=== PATIENT | female | born 1980 | race Caucasian/White ===

== ENCOUNTER 2017-04-07 16:52 | Inpatient (IN) | payer OTHER ==
[~2017-04-07] VITALS: Ht 162.6 cm; Wt 108.9 kg
--- NOTE | 2017-04-07 17:30 | NUR ---
Intake assessment; Patient is a 36 year old female, presented to [facility] to detoxify from Benzodiazepines (Klonopin/Ativan) and [place]. Patient came from [place] and arrived at intake office at approximately 1700 accompanied by her . Patient appears anxious, nervous and withdrawn. She is the primary source of information. Patient is admitted under the care of Dr. Harding. Patient reported to be allergic to Cipro, Levaquin and Toradol. Patient denies any history of seizures. Admitting vital signs are as Follows; BP 120/79, HR 92, Temperature 97.9, respirations 18, SPO2 95%, weight 240 and height of 5'4. Educated patient regarding unit protocols and policies. Patient to be evaluated by MD in intake office. Will continue with nursing assessment when patient is up on the unit.
[2017-04-07 17:49] VITALS: BP 120/79
[2017-04-07] MEDS ORDERED: diphenhydrAMINE 50 MG CAPSULE PO PRN (18:00)
[2017-04-07] MEDS ORDERED: HYDROXYZINE PAMOATE 25 MG CAPSULE PO PRN (18:00)
[2017-04-07] MEDS ORDERED: LORAZEPAM 2 MG/1 ML VIAL IM PRN (18:00)
[2017-04-07] MEDS ORDERED: DICYCLOMINE HCL 20 MG TABLET PO PRN (18:00)
[2017-04-07] MEDS ORDERED: MAGNESIUM HYDROXIDE 30 ML LIQUID UDC PO PRN (18:00)
[2017-04-07] MEDS ORDERED: IBUPROFEN 600 MG TABLET PO PRN (18:00)
[2017-04-07] MEDS ORDERED: ONDANSETRON 4 MG/2 ML VIAL IM PRN (18:00)
[2017-04-07] MEDS ORDERED: LOPERAMIDE HCL 2 MG CAPSULE PO PRN ×2 (18:00)
[2017-04-07] MEDS ORDERED: THIAMINE HCL 200 MG/2 ML VIAL IM ONE (18:00)
[2017-04-07] MEDS ORDERED: BUPRENORPHINE HCL 2 MG TAB.SUBL SL PRN (18:00)
[2017-04-07] MEDS ORDERED: LORAZEPAM 1 MG TABLET PO PRN ×2 (18:00)
[2017-04-07] MEDS ORDERED: MAG HYDROX/AL HYDROX/SIMETH 30 ML LIQUID UDC PO PRN (18:00)
[2017-04-07] MEDS ORDERED: MIRALAX 17 GM POWD.PACK PO PRN (18:00)
[2017-04-07] MEDS ORDERED: ONDANSETRON ODT 4 MG TAB.RAPDIS SL PRN (18:00)
[2017-04-07] MEDS ORDERED: HYDR50CA PO (18:51)
[2017-04-07] MEDS ORDERED: GABA600T2 PO (18:51)
[2017-04-07] MEDS ORDERED: QUET200T PO (18:51)
[2017-04-07 18:52] LABS: *AMPHETAMINE, URINE NEGATIVE (NEGATIVE); *BARBITURATE, URINE NEGATIVE (NEGATIVE); *CANNABINOID, URINE NEGATIVE (NEGATIVE); *COCCAINE, URINE NEGATIVE (NEGATIVE); *OPIATE, URINE NEGATIVE (NEGATIVE); *PHENCYCLIDINE SCREEN,URINE NEGATIVE (NEGATIVE)
--- NOTE | 2017-04-07 19:09 | NUR ---
End of shift note; Patient is AOX4. Patient refused to receive Vitamin B1 shot. Educated patient regarding the importance of compliance to treatment, verbalized understanding. Detailed report given to oncoming night nurse.
[2017-04-07 20:00] VITALS: BP 142/90
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
[2017-04-07 20:23] LABS: BASOPHILS # (AUTO) 0.1 K/uL (0.0-8.0); BASOPHILS % (AUTO) 0.5 % (0.0-2.0); EOSINOPHILS # (AUTO) 0.2 K/uL (0.0-0.7); EOSINOPHILS % (AUTO) 2.1 % (0.0-7.0); HEMATOCRIT 39.3 % (37-47); HEMOGLOBIN 12.7 G/DL (12.0-16.0); LYMPHOCYTES # (AUTO) 3.1 K/UL (0.8-4.8); LYMPHOCYTES % (AUTO) 28.4 % (20.5-51.5); MEAN CORPUSCULAR HEMOGLOBIN 28.5 UUG (27.0-31.0); MEAN CORPUSCULAR HGB CONC 32 g/dL (32.0-37.0); MEAN CORPUSCULAR VOLUME 88.1 FL (81.0-99.0); MONOCYTES # (AUTO) 0.6 K/UL (0.1-1.30); MONOCYTES % (AUTO) 5.1 % (0.0-11.0); NEUTROPHILS # (AUTO) 6.8 K/UL (1.8-8.9); NEUTROPHILS % (AUTO) 63.9 % (38.5-71.5); PLATELET COUNT (AUTO) 348 K/UL (150-450); RED BLOOD CELL COUNT(AUTO) 4.46 MIL/UL (4.2-5.4); WHITE BLOOD COUNT (AUTO) 10.8 K/UL (4.0-11.2)
[2017-04-07 20:24] LABS: ALANINE AMINOTRANSFERASE 38 U/L (14-59); ALKALINE PHOSPHATASE 80 U/L (50-136); AMYLASE 39 U/L (25-115); ASPARTATE AMINOTRANSFERASE 20 U/L (15-37); BILIRUBIN,TOTAL 0.1 mg/dL (0.2-1.0); CARBON DIOXIDE 29 mmol/L (21-32); CHLORIDE 103 mmol/L (98-107); CREATININE 0.9 mg/dL (0.6-1.3); GLUCOSE 91 mg/dL (74-106); LIPASE 159 U/L (73-393); MAGNESIUM 1.8 mg/dL (1.8-2.4); TOTAL PROTEIN, SERUM 7.5 g/dL (6.4-8.2); UREA NITROGEN, BLOOD 9 mg/dL (7-18)
[2017-04-07 20:28] LABS: ETHANOL < 3 MG/DL (0-0)
[2017-04-07 20:43] LABS: THYROID STIMULATING HORMONE 3.259 mIU/mL (0.358-3.740)
[2017-04-07 20:56] LABS: CHOLESTEROL 169 mg/dL (<200); HDL CHOLESTEROL 54 mg/dL (40-60); TRIGLYCERIDES 107 MG/DL (30-150)
[2017-04-07 21:00] LABS: *URINE HCG, QUAL NEGATIVE (NEGATIVE)
[2017-04-07] MEDS ORDERED: BUPRENORPHINE HCL 2 MG TAB.SUBL SL SCH (21:00)
[2017-04-07] MEDS ORDERED: LORAZEPAM 1 MG TABLET PO SCH (21:00)
[2017-04-07] MEDS: PRAZOSIN HCL 1 MG CAPSULE PO SCH (21:23)
[2017-04-07] MEDS: GABAPENTIN 300 MG CAPSULE PO SCH (21:23)
[2017-04-07] MEDS ORDERED: QUETIAPINE FUMARATE 200 MG TABLET PO ONE (23:00)
--- NOTE | 2017-04-07 23:03 | NUR ---
PRN Administration Obtained one time order of Seroquel 200mg x1 and administered for sleep as ordered. Safety measures in place. Will continue to monitor.
[2017-04-07] MEDS ORDERED: QUETIAPINE FUMARATE 200 MG TABLET ONE (23:07)
[2017-04-08] VITALS: BP 135/83
--- NOTE | 2017-04-08 | NUR ---
Vital Signs BP 135/83, pulse 77, respirations 16, SpO2 98%, temp 98.2, no pain 0/10. COWS/CIWA deferred d/t pt sleeping - to assess while pt is awake as ordered Pt is sleeping, Seroquel effective, no s/s of acute distress noted. Safety measures in place. Will continue to monitor.
[2017-04-08] MEDS ORDERED: VENL75CA62 PO (01:00)
[2017-04-08] MEDS ORDERED: LORA1TAB PO (01:00)
[2017-04-08] MEDS ORDERED: PRAZ2CAP2 PO (01:00)
[2017-04-08] MEDS ORDERED: GUAI-789 PO (01:00)
[2017-04-08] MEDS ORDERED: GABA-534 PO (01:00)
[2017-04-08] MEDS ORDERED: THIA100T70 PO (01:00)
[2017-04-08 04:00] VITALS: BP 102/55
--- NOTE | 2017-04-08 04:00 | NUR ---
Vital Signs BP 102/55, pulse 77, respirations 18, SpO2 96%, temp 97.9, no pain 0/10. COWS/CIWA deferred d/t pt sleeping - to assess while pt is awake as ordered Safety measures in place. Will continue to monitor.
--- NOTE | 2017-04-08 07:00 | NUR ---
End of Shift Pt is a 36 year old female admitted for Benzo/Opiate dependence. PMH: PTSD, Bipolar, Stroke, chlamydia, tonsillectomy, ORIF of right humerus and suicidal attempt 60 days ago. Pt is allergic to ciprofloxacin, Ketoralac, levofloxacin, regular diet, fall/seizure precautions and full code. During shift, pt presented with depressed mood, withdrawn, skin clammy/flushed, reported chills, body aches, hot cold flushes - scheduled medications administered, CIWA 4 and COWS 7. Seroquel 200mg x1 administered for sleep, effective. Pt slept for 4 hours, intake of 495 ml Po and voids x1. Safety measures in place, call light within reach, side rails up x2, bed locked and in low position. Endorsed to day shift nurse.
--- NOTE | 2017-04-08 07:30 | NUR ---
START OF SHIFT NOTE: Received report from night auditor nurse. Pt is a 36 year old female admitted on 04/07/2017 for Opiate/Benzo dependence. Pt placed on a 5 day Ativan and 5 day Subutex tapers. Tolerating well. Pt c/o severe muscle "cramping" and "bad withdrawal." Clonidine 0.1mg po prn and Robaxin 750 mg po prn given. Pt is alert and oriented X4. Color pink, skin warm and dry. Respirations rapid and slightly labored. Safety precautions observed. Call light within reach. Will continue to monitor.
[2017-04-08] MEDS: METHOCARBAMOL 750 MG TABLET PO PRN (07:43)
[2017-04-08] MEDS: CLONIDINE HCL 0.1 MG TABLET PO PRN (07:44)
[2017-04-08 08:00] VITALS: BP 138/82
[2017-04-08] MEDS: GABAPENTIN 300 MG CAPSULE PO SCH ×3 (08:05→20:53)
[2017-04-08] MEDS: FOLIC ACID 1 MG TABLET PO SCH (08:05)
[2017-04-08] MEDS: THIAMINE HCL 100 MG TABLET PO SCH (08:05)
[2017-04-08] MEDS: MULTIVITAMINS,THERAPEUTIC TABLET PO SCH (08:05)
[2017-04-08] MEDS: BUPRENORPHINE HCL 2 MG TAB.SUBL SL SCH ×3 (08:05→20:53)
[2017-04-08] MEDS: LORAZEPAM 1 MG TABLET PO SCH ×3 (08:06→20:53)
--- NOTE | 2017-04-08 08:15 | NUR ---
VSS CIWA 11 COWS 10 c/o severe muscle aches and anxiety. Tapers administered.
[2017-04-08] MEDS ORDERED: TUBERCULIN,PURIF.PROT.DERIV. 5 TU/0.1 ML TEST ID ONE (09:00)
--- NOTE | 2017-04-08 09:30 | NUR ---
Pt states feels much improved after taper meds. TB test administered RFA
--- NOTE | 2017-04-08 11:10 | NUR ---
ASSUMED CARE Pt's endorsement received from primary nurse. All pertinent information discussed. Will cont to monitor closely. Safety measurers in place.
--- NOTE | 2017-04-08 11:11 | NUR ---
Report given to DELONTE Bashir who will be assuming care of patient
[2017-04-08 12:00] VITALS: BP 109/67
[2017-04-08 16:00] VITALS: BP 123/78
--- NOTE | 2017-04-08 19:15 | NUR ---
END OF SHIFT NOTE Gave report to night nurse, 36 year old female admitted for Benzo/Opiate dependence. PMH: PTSD, Bipolar, Stroke, chlamydia, tonsillectomy, ORIF of right humerus and suicidal attempt 60 days ago. Pt is allergic to ciprofloxacin, Ketoralac, levofloxacin, regular diet, fall/seizure precautions and full code. During shift, pt presented with depressed mood, withdrawn, skin clammy/flushed, reported chills, body aches, hot cold flushes - scheduled medications administered. Assumed care for pt at 1110. Pt did not receive any PRN medications. Pt remained compliant with plan of care. Encouraged pt to attend groups to learn new coping skills. Last COWS-6, CIWA-5. Safety measures in place, call light within reach. pass report to night nurse.
--- NOTE | 2017-04-08 19:15 | NUR ---
Start of Shift Note: Patient is a 36 y/o female admitted on 04/07/17 for Opiate and Benzo dependence. Patient has medical history of PTSD, Bipolar disorder, Tonsillectomy, Stroke & history of Suicidal ideation 60 days ago. No seizure history noted. Patient is on a regular diet with allergies to Cipro, Toradol & Levaquin. Fall and Seizure precaution. Patient is on a 5-day Ativan and 5-day Subutex taper and tolerating well. Patient is alert & oriented to name, place & situation. Patient lying in bed and appears anxious. No shortness of breath noted. Respiration even & unlabored. Abdomen soft & non-distended. No nausea/vomiting noted. Patient complains of sweating, chills, 7/10 body aches and 7/10 headache. Bilateral hand tremors felt but not seen. No hallucinations noted. Patient denies SI/HI. Safety precautions are in place. Bed locked in lowest position. Both side rails up. Call light within pt's reach. Will continue to monitor patient.
[2017-04-08 20:00] VITALS: BP 146/84
[2017-04-08] MEDS: PRAZOSIN HCL 1 MG CAPSULE PO SCH (20:53)
[2017-04-08] MEDS: ACETAMINOPHEN 325 MG TABLET PO PRN (20:53)
[2017-04-08] MEDS: QUETIAPINE FUMARATE 200 MG TABLET PO SCH (20:53)
[2017-04-08 21:29] LABS: *BILIRUBIN,URIN NEGATIVE (NEGATIVE); *BLOOD, URINE NEGATIVE (NEGATIVE); *COLOR,URINE YELLOW (YELLOW); *KETONES,URINE NEGATIVE (NEGATIVE); *PROTEIN,URINE NEGATIVE (NEGATIVE); *UROBILINOGEN,URINE 0.2 E.U./dl (NORMAL); LEUKOCYTE ESTERASE ,URINE NEGATIVE (NEGATIVE); NITRITE, URINE NEGATIVE (NEGATIVE); PH,URINE 5.5 (5.0-8.0); UGLUCOSE NEGATIVE (NEGATIVE)
[2017-04-08 21:48] LABS: *CLARITY,URINE HAZY (CLEAR)
[2017-04-08 21:52] LABS: BACTERIA,URINE FEW /HPF (NONE SEEN); RBC,URINE 0-3 /HPF (0-3); SQUAMOUS EPITHELIAL CELL,UR MANY /HPF (NONE SEEN); WBC,URINE 0-3 /HPF (0-3)
[2017-04-08 21:53] LABS: MUCUS,URINE MODERATE /LPF (0-FEW)
[2017-04-09] VITALS: BP 124/75
--- NOTE | 2017-04-09 00:36 | NUR ---
RN note Stat ABG and Chest X-Ray Pt noted by Primary Nurse to have SOB and Oxygen Desaturation. SPO2 on RA=50-60%. RR=26. Primary Nurse called Dr. Harding. ordered Non-rebreather Mask at 15 LPM and ordered ABG Stat and Chest X-Ray Stat. Carried out orders.
[2017-04-09 01:22] LABS: ABG BASE EXCESS -3.5 mmol/L; ABG HCO3 20.6 mmol/L; ABG PCO2 34.2 mmHg (35.0-45.0); ABG PH 7.398 (7.350-7.450); ABG PO2 128.2 mmHg (75.0-100.0); ABG SITE LEFT RADIAL; ABG TOTAL HEMOGLOBIN 12.7 G/dL (12.0-16.0); COHb 6.5 % (0.5-1.5); MetHb 0.3 % (0.0-1.5); O2Hb 91.9 % (94.0-97.0)
[2017-04-09 04:00] VITALS: BP 134/67
[2017-04-09] MEDS: ACETAMINOPHEN 325 MG TABLET PO PRN ×4 (05:13→21:33)
--- NOTE | 2017-04-09 05:13 | NUR ---
PRN Tylenol Patient noted with a temperature of 100.1 F. PRN Tylenol administered as ordered. Will continue to monitor.
--- NOTE | 2017-04-09 05:30 | NUR ---
RN NOTE Pt insisted on smoking at patio. Explained risk of smoking but still refused. Informed pt of her oxygen saturation and risk of shortness of breath. Staff members redirected her and explained risks but still demanded that she go to smoke. Pt begins to get agitated and insisted that if she don't let her smoke she is gonna AMA.
--- NOTE | 2017-04-09 07:13 | NUR ---
End of Shift Note: Patient is a 36 y/o female admitted on 04/07/17 for Opiate and Benzo dependence. Patient has medical history of PTSD, Bipolar disorder, Tonsillectomy, Stroke & history of Suicidal ideation 60 days ago. No seizure history noted. Patient is on a regular diet with allergies to Cipro, Toradol & Levaquin. Fall and Seizure precaution. Patient is on a 5-day Ativan and 5-day Subutex taper and tolerating well. Patient had an episode of desaturation as low as 50-60% on RA. Patient was placed on oxygen via a non-rebreather mask as ordered by MD to maintain O2Sat >92%. ABG and CXR was done as ordered. Patient was able to maintain O2Sat while on Oxygen. Pt had an episode of fever. PRN Tylenol was given and was effective. Pt is non-cooperative to treatment. Pt slept for a total of 6 hours. Pt consumed 890ml of fluids. Voided 2x with no bowel movement. All needs attended & met. Safety precautions are in place. Bed locked in lowest position. Both side rails up. Call light within pt's reach. Will endorse pt to day shift nurse.
--- NOTE | 2017-04-09 07:15 | NUR ---
Start of Shift Note: Report received from shift supervisor rn nurse. Patient is a 36 y/o female admitted on 04/07/17 for Opiate and Benzo dependence. Pt is full code regular diet on fall and seizure precautions, reports allergies to Cipro, Ketorolac,and levofloxacin. Pt continues her 5 day Ativan and 5 day Subutex taper tolerating well. Reports PMH of PTSD, Bipolar disorder, Tonsillectomy, Stroke & history of Suicidal ideation 60 days ago and sleep apnea. Denies any suicidal and homicidal ideations. Denies seizure history. Patient is alert & oriented to name, place & situation. Pt is on a oxygen mask at 7L/min due to having low saturation levels at night (50%-60%) on RA. Pt's current SPO2 is at 97%. Pt is laying in bed with eyes closed with even unlabored breathing at 18. Pt had ABG's and Chest X-ray completed last night due to low saturation levels, MD aware of results. Pt also had a fever last night and received PRN Tylenol pts current temp is 98.1F. Pts last COWS 8 and CIWA 8 taken at 0700, pt slept a total of 6 hours last night. Pt is safe, all safety measures in place , call light within reach will continue to monitor and provide supports.
[2017-04-09 08:00] VITALS: BP 120/67
[2017-04-09 08:06] LABS: HEPATITIS B SURFACE AG Negative (Negative)
[2017-04-09] MEDS: GABAPENTIN 300 MG CAPSULE PO SCH ×3 (08:58→21:33)
[2017-04-09] MEDS: THIAMINE HCL 100 MG TABLET PO SCH (08:58)
[2017-04-09] MEDS: VENLAFAXINE XR 75 MG CAP.SR.24H PO SCH (08:58)
[2017-04-09] MEDS: LORAZEPAM 1 MG TABLET PO SCH ×4 (08:58→21:33)
[2017-04-09] MEDS: MULTIVITAMINS,THERAPEUTIC TABLET PO SCH (08:59)
[2017-04-09] MEDS: QUETIAPINE FUMARATE 25 MG TABLET PO SCH ×2 (08:59→09:00)
[2017-04-09] MEDS: FOLIC ACID 1 MG TABLET PO SCH (08:59)
[2017-04-09] MEDS ORDERED: BUPRENORPHINE HCL 2 MG TAB.SUBL SL SCH (09:00)
--- NOTE | 2017-04-09 09:15 | NUR ---
PRN MEDICATION Pt c/o generalized pain rating it 6/10 requested something for relief, non-pharmacological techniques interventions provided x3 and were not effective. PRN Tylenol 650mg administered PO, educated pt about s/e of medication and when to contact nurse. all needs met, all safety measures in place, will continue to monitor.
--- NOTE | 2017-04-09 10:15 | NUR ---
PRN REASSESSMENT Upon reassessment medication noted to be effective pt reported a decrease in pain to 2/10. Instructed pt to contact nurse if pain reoccurred. All needs met, all safety measures in place will continue to monitor.
[2017-04-09] MEDS ORDERED: QUETIAPINE FUMARATE 25 MG TABLET PO ONE (10:45)
[2017-04-09] MEDS ORDERED: NICOTINE POLACRILEX 4 MG GUM-PK OF TEN BC PRN (10:45)
[2017-04-09] MEDS: NICOTINE 14 MG/24HR PATCH TD SCH (10:59)
[2017-04-09 12:00] VITALS: BP 115/70
--- NOTE | 2017-04-09 13:55 | NUR ---
Medication held Pt's 1300 Ativan 1mg held due to pt being too sedated. MD contacted and notified no orders obtained. All safety measures in place will continue to monitor.
[2017-04-09] MEDS: BUPRENORPHINE HCL 2 MG TAB.SUBL SL SCH ×2 (15:12→21:32)
--- NOTE | 2017-04-09 15:19 | NUR ---
PRN MEDICATION Pt c/o headache rating it 5/10 requested something for relief, non-pharmacological techniques interventions provided x3 and were not effective. PRN Tylenol 650mg administered PO, educated pt about s/e of medication and when to contact nurse. all needs met, all safety measures in place, will continue to monitor.
[2017-04-09 16:00] VITALS: BP 137/70
--- NOTE | 2017-04-09 16:19 | NUR ---
PRN REASSESSMENT Upon reassessment medication noted to be effective pt reported a decrease in pain to 1/10. Instructed pt to contact nurse if pain reoccurred. All needs met, all safety measures in place will continue to monitor.
--- NOTE | 2017-04-09 19:15 | NUR ---
Start of Shift Note: Patient is a 36 y/o female admitted on 04/07/17 for Opiate and Benzo dependence. Patient has medical history of PTSD, Bipolar disorder, Tonsillectomy, Stroke & history of Suicidal ideation 60 days ago. No seizure history noted. Patient is on a regular diet with allergies to Cipro, Toradol & Levaquin. Fall and Seizure precaution. Patient is on a 5-day Ativan and 5-day Subutex taper and tolerating well. Patient is alert & oriented to name, place & situation. Patient is ambulatory with a steady gait. Last COWS 5 cIWA 4. Pt was given PRN Tylenol x2 and was given a one time order of Seroquel during day shift. Pt was placed on smoking restriction per MD orders. Pt to be placed on oxygen mask at 7L/min while sleeping d/t sleep apnea. Patient awake at this time and ambulating in the hallway. O2Sat @ 98% on RA at this time. Safety precautions are in place. Will continue to monitor patient. Addendum: 04/10/17 at 0038 by DONAVON VARELA RN ERROR on oxygen mask. Pt with new orders to be placed on CPAP when sleeping d/t sleep apnea.
--- NOTE | 2017-04-09 19:20 | NUR ---
End Of Shift Report given to tube machine operator helper nurse. Patient is a 36 y/o female admitted on 04/07/17 for Opiate and Benzo dependence. Pt is full code regular diet on fall and seizure precautions, reports allergies to Cipro, Ketorolac,and levofloxacin. Pt continues her 5 day Ativan and 5 day Subutex taper tolerating well. Reports PMH of PTSD, Bipolar disorder, Tonsillectomy, Stroke & history of Suicidal ideation 60 days ago and sleep apnea. Denies seizure history. Patient is alert & oriented to name, place & situation. Pt is on a oxygen mask at 7L/min when she sleeps due to sleep apnea. Pts vitals are WNL, pt is in stable condition, Pt received PRN Tylenol 650mg X2, Pts Ativan 1mg at 1300 due to being too sedated MD aware. Pt received one time Seroquel 50mg Pts last CIWA 5 COWS 4 at 1600. Detox medication effective at reducing withdrawal symptoms. Patient encouraged to attend group therapies/sessions to learn new coping skills to recent relapse, patient denies SI/HI. Pt ate all of her meals his total fluid intake was 2055mlwith 3 void and 0 bowel movement. Safety measures in place. Call light kept within reach. Patient endorsed to tube machine operator helper nurse, all pertinent information discussed.
--- NOTE | 2017-04-09 19:41 | NUR ---
Pt is on room air, refusing to use oxygen at this time. Refusing to wear cpap. Rn notified.
--- NOTE | 2017-04-09 20:00 | NUR ---
Pt wanted to smoke, pt reminded of smoking restriction per MD. Pt refused and walked down stairs and attempted to go to smoking patio. Staff members followed her downstairs and redirected her. Pt said she just wanted to go outside for fresh air. Pt was accompanied by a RINK RAT.
--- NOTE | 2017-04-09 21:20 | NUR ---
POWER PLANT OPERATOR APPRENTICE found a manager financial in pt's possession. Room Search and Body search done. Nothing was found. Will continue to monitor patient.
[2017-04-09 21:30] VITALS: BP 117/62
[2017-04-09] MEDS: QUETIAPINE FUMARATE 200 MG TABLET PO SCH (21:31)
[2017-04-09] MEDS: PRAZOSIN HCL 1 MG CAPSULE PO SCH (21:33)
--- NOTE | 2017-04-09 22:39 | NUR ---
PT WAS PLACED ON CPAP 8, 305 FIO2. TOLERATING SETTINGS WELL AT THIS TIME. LARGE NASAL MASK IN USE. NO S/S OF RESPIRATORY DISTRESS NOTED. BVM AT BEDSIDE. ALARMS ARE ON AND AUDIBLE. WILL CONTINUE TO MONITOR. Addendum: 04/10/17 at 0013 by BENEDICTO NAZARIO RT 30% FIO2.
--- NOTE | 2017-04-09 23:07 | NUR ---
PT DOES NOT TOLERATE ANYTHING ABOVE CPAP OF 4, PT TOLERATING CPAP OF 4 WELL AT THIS TIME. SPO2 > 92% WITH GOOD TIDAL VOLUMES. RN AWARE.
[2017-04-10] VITALS: BP 129/60
[2017-04-10 06:12] VITALS: BP 123/58
--- NOTE | 2017-04-10 07:16 | NUR ---
End of Shift Note: Patient is a 36 y/o female admitted on 04/07/17 for Opiate and Benzo dependence. Patient has medical history of PTSD, Bipolar disorder, Tonsillectomy, Sleep Apnea, Stroke & history of Suicidal ideation 60 days ago. No seizure history noted. Patient is on a regular diet with allergies to Cipro, Toradol & Levaquin. Fall and Seizure precaution. Patient is on a 5-day Ativan and 5-day Subutex taper. last COWS 7 CIWA 7 at 6am. Patient was given PRN tylenol during my shift. Patient is stable at this time. Patient is on CPAP to maintain O2sat >92%. Pt is non-compliant with treatment plan. Patient was found with a fitter type bar and segment in her possession last night. Body search and room search done and nothing was found. Pt in her room with eyes close. Pt refused CPAP. Pt on facemask @ 7Lpm with O2Sat @ 97%. Pt slept for a total of 7 hours. Pt consumed 355ml of fluids. Voided 1x with no bowel movement. All needs attended & met. Safety precautions are in place. Bed locked in lowest position. Both side rails up. Call light within pt's reach. Will endorse pt to day shift nurse.
--- NOTE | 2017-04-10 07:29 | NUR ---
Start of shift note; Received report from night nurse. Patient is a 36 year old female admitted on 04/07/17 for Benzo and Opiate. Patient was placed on a Subutex and Ativan tapers. Patient noted to be allergic to Cipro, ketorolac, levofloxacin, on full code, regular diet. Patient reported history of PTSD, bipolar disorder, tonsillectomy, stroke, sleep apnea, history of S/I ideation. No seizure history noted. Patient is on CPAP with FIO2@ 30% while asleep. Patient is AOX4. Patient is on smoking restrictions per MD, patient was educated regarding the importance of compliance to treatment plan, patient is non-compliant per nurse endorsement. All safety measures secured. Will closely monitor patient.
[2017-04-10 08:00] VITALS: BP 131/75
[2017-04-10] MEDS: QUETIAPINE FUMARATE 25 MG TABLET PO SCH ×2 (09:00→11:05)
[2017-04-10] MEDS: VENLAFAXINE XR 75 MG CAP.SR.24H PO SCH (09:16)
[2017-04-10] MEDS: FOLIC ACID 1 MG TABLET PO SCH (09:16)
[2017-04-10] MEDS: BUPRENORPHINE HCL 2 MG TAB.SUBL SL SCH ×3 (09:16→20:46)
[2017-04-10] MEDS: THIAMINE HCL 100 MG TABLET PO SCH (09:16)
[2017-04-10] MEDS: GABAPENTIN 300 MG CAPSULE PO SCH ×3 (09:16→20:46)
[2017-04-10] MEDS: LORAZEPAM 1 MG TABLET PO SCH ×3 (09:17→20:46)
[2017-04-10] MEDS: NICOTINE 14 MG/24HR PATCH TD SCH (09:17)
[2017-04-10] MEDS: MULTIVITAMINS,THERAPEUTIC TABLET PO SCH (09:17)
--- NOTE | 2017-04-10 11:00 | NUR ---
Medication administration; Patient requested to take her routine Seroquel 50mg at this time prior to attending group therapy. Medication given as per patient's request.
[2017-04-10 12:00] VITALS: BP 90/57
[2017-04-10] MEDS: METHOCARBAMOL 750 MG TABLET PO PRN (12:08)
--- NOTE | 2017-04-10 12:08 | NUR ---
PRN medication; PRN Robaxin 750mg PO given for muscle aches. Will continue to monitor patient.
--- NOTE | 2017-04-10 13:08 | NUR ---
Re-assessment; Patient denies muscle aches at this time. PRN medication is effective.
[2017-04-10] MEDS: BACLOFEN 10 MG TABLET PO SCH ×2 (14:28→20:46)
--- NOTE | 2017-04-10 15:26 | NUR ---
Endorsement given; Patient is AOX4. Patient remained on 1:1 supervision for safety. Detailed report given to covering nurse. All safety measures secured. Met all needs. Addendum: 04/10/17 at 1528 by COLLEEN CABALLERO LVN Disregard above note, wrong patient documentation.
--- NOTE | 2017-04-10 15:29 | NUR ---
Endorsement given; Patient is AOX4. Detailed report given to covering nurse. All safety measures secured. Met all needs.
--- NOTE | 2017-04-10 15:29 | NUR ---
ENDORSEMENT Pt endorsed to me. Pt in room on bed. No distress noted.
[2017-04-10 16:00] VITALS: BP 104/51
--- NOTE | 2017-04-10 18:52 | NUR ---
END OF SHIFT Pt 36 y/o female admitted for bzo hydrocodone dependence. Pt alert and oriented to name, place, and time. [place]. Skin warm and slightly moist to touch. Respirations even and unlabored. Bilateral hand tremors noted. Pt on CPAP with Fio2 30% while asleep. Pt observed mostly isolative to room throughout the day. Pt did not attend group activity. Pt medication compliant and tolerated well. Bed on lowest position with side rails x2 up for safety. Call light within reach. No distress noted at this time.
--- NOTE | 2017-04-10 19:15 | NUR ---
Start of Shift Note: Patient is a 36 y/o female admitted on 04/07/17 for Opiate and Benzo dependence. Patient has medical history of PTSD, Bipolar disorder, Tonsillectomy, Stroke & history of Suicidal ideation 60 days ago. No seizure history noted. Patient is on a regular diet with allergies to Cipro, Toradol & Levaquin. Fall and Seizure precaution. Patient is on a 5-day Ativan and 5-day Subutex taper and tolerating well. Patient is alert & oriented to name, place & situation. Patient is ambulatory with a steady gait. Last COWS 4 cIWA 2. Pt was given PRN Robaxin during day shift. Pt on CPAP 4 FiO2 @ 30% while asleep. Patient is alert & oriented x4. No complains to shortness of breath. Abdomen soft & non-distended. Nausea with no episode of vomiting noted. Pt complains of 9/10 body aches, stomach cramps, 8/10 headache, sweating and chills. Bilateral hand tremors felt. Patient denies SI/HI. No hallucinations noted. Safety precautions are in place. Will continue to monitor patient.
[2017-04-10 20:00] VITALS: BP 139/74
[2017-04-10] MEDS: QUETIAPINE FUMARATE 200 MG TABLET PO SCH (20:46)
[2017-04-10] MEDS: ACETAMINOPHEN 325 MG TABLET PO PRN (20:46)
--- NOTE | 2017-04-10 20:46 | NUR ---
PRN Administration Patient complains of 8/10 headache & nausea. Patient noted with restlessness and facial grimacing. No episode of vomiting noted. PRN Tylenol and Zofran administered as ordered. Will reassess in 1 hour fir effectiveness of medication. Will continue to monitor patient.
[2017-04-10] MEDS: PRAZOSIN HCL 1 MG CAPSULE PO SCH (20:47)
--- NOTE | 2017-04-10 21:46 | NUR ---
PRN Reassesment Patient verbalized relief from headache and improved nausea. Pt noted with a 3/10 headache at this time. Will continue to monitor patient.
[2017-04-11] VITALS: BP 108/51
[2017-04-11 05:30] VITALS: BP 117/62
--- NOTE | 2017-04-11 07:13 | NUR ---
End of Shift Note: Patient is a 36 y/o female admitted on 04/07/17 for Opiate and Benzo dependence. Patient has medical history of PTSD, Bipolar disorder, Tonsillectomy, Sleep Apnea, Stroke & history of Suicidal ideation 60 days ago. No seizure history noted. Patient is on a regular diet with allergies to Cipro, Toradol & Levaquin. Fall and Seizure precaution. Patient is on a 5-day Ativan and 5-day Subutex taper. last COWS 7 CIWA 7. Patient was given PRN tylenol during my shift. Patient had an uneventful night. Patient is stable at this time. Patient is on CPAP to maintain O2sat >92% while asleep. Pt is compliant with treatment plan during my shift. Pt slept for 7 hours. Pt consumed 1035ml of fluids. Voided 3x with no bowel movement. All needs attended & met. Safety precautions are in place. Bed locked in lowest position. Both side rails up. Call light within pt's reach. Will endorse pt to day shift nurse.
--- NOTE | 2017-04-11 07:29 | NUR ---
BEGINNING OF SHIFT Patient endorsement report received from third shift lieutenant nurse, all pertinent information discussed. patient is a 36 year old Female admitted on 04/07/2017 with admitting Dx: bzo/opiate dependence. Patient currently ongoing taper of 5 day Ativan and 5 day Subutex taper as ordered, patient is scheduled to begin day 5 of taper this morning. per nights shift patient received PRN:Tylenol and Zofran medication effective as per third shift lieutenant Patient with last ciwa score of: 7 and last cow score of: 7. Patient slept for 7. hours. Patient received awake, alert and oriented x4, educated regarding plan of care for the day and medication regimen. safety measures in place. call light kept with in reach, will continue to monitor.
[2017-04-11 08:00] VITALS: BP 132/88
[2017-04-11] MEDS: MULTIVITAMINS,THERAPEUTIC TABLET PO SCH (08:31)
[2017-04-11] MEDS: VENLAFAXINE XR 75 MG CAP.SR.24H PO SCH (08:31)
[2017-04-11] MEDS: LORAZEPAM 1 MG TABLET PO SCH ×2 (08:31→21:01)
[2017-04-11] MEDS: GABAPENTIN 300 MG CAPSULE PO SCH ×3 (08:31→21:01)
[2017-04-11] MEDS: BACLOFEN 10 MG TABLET PO SCH ×3 (08:31→21:01)
[2017-04-11] MEDS: BUPRENORPHINE HCL 2 MG TAB.SUBL SL SCH ×2 (08:31→21:01)
[2017-04-11] MEDS: QUETIAPINE FUMARATE 25 MG TABLET PO SCH (08:32)
[2017-04-11] MEDS: THIAMINE HCL 100 MG TABLET PO SCH (08:32)
[2017-04-11] MEDS: FOLIC ACID 1 MG TABLET PO SCH (08:32)
[2017-04-11] MEDS: NICOTINE 14 MG/24HR PATCH TD SCH (08:37)
[2017-04-11 13:00] VITALS: BP 103/60
[2017-04-11 17:00] VITALS: BP 111/68
--- NOTE | 2017-04-11 18:32 | NUR ---
END OF SHIFT Patient alert and oriented x4, vital signs stable during shift. Patient with admitting Dx: BZO/Opiate dependence. Patient continues on 5 day Ativan taper and 5 day Subutex taper as ordered , and is currently on day 5 of taper, well tolerated, no ASE noted. 0900 assessment patient presented with: heart rate of 87, moist eyes, irritable, anxiety, barely sweating, mild head fullness, severe bone and joint aches, with cow score of: 6 and ciwa score of: 4. 1300 assessment patient presented with: Heart rate of 84, mild bone and joint aches, and barely sweating with cow score of: 3, and ciwa score of: 2. 1700 assessment patient presented with: : Heart rate of: 89 mild bone and joint aches, and barely sweating with cow score of: 3, and ciwa score of: 2.Patient was administered no PRNs medications during shift. Patient encouraged adequate PO fluid intake as tolerated. Encouraged to attend group therapies/sessions to learn new coping skills to prevent relapse denies any SI/HI. O2 saturation monitored closely during shift, ranging from 92%-98% room air. Safety measures in place. call light kept with in reach. all needs met and rendered. patient endorsed to conveyor man nurse, all pertinent information discussed.
[2017-04-11 20:00] VITALS: BP 124/64
--- NOTE | 2017-04-11 20:00 | NUR ---
START OF SHIFT NOTE PATIENT IN HER ROOM, RESTING. PATIENT REPORTS ANXIETY, STUFFY NOSE, SWEATING AND ABDOMINAL CRAMPING BUT STATES SHE FEELS MUCH BETTER TODAY. PATIENT C/O GENERALIZED BODY ACHES 03/25. RECEIVED REPORT FROM DAY SHIFT NURSE. PATIENT IS A 36 YEAR OLD FEMALE, ADMITTED FOR OPIATE/BENZO DEPENDENCE. PATIENT IS ON ATIVAN AND SUBUTEX TAPER. PATIENT IS FULL CODE, REGULAR DIET AND ALLERGIC TO CIPRO, KETOROLAC, LEVOFLOXACIN. PATIENT REPORTS PMH OF PTSD,BIPOLAR ,TONSILLECTOMY, STROKE, SUICIDAL IDEATION 60 DAYS (WAS IN PSYCH UNIT) AND SLEEP APNEA. NO SEIZURE HISTORY. ON ADMISSION, PATIENT HAS FOLLICULITIS UNDER HER ARMS AND ABDOMEN AREAS. PATIENT ON CPAP 5 FIO2 35 % . PATIENT WAS STARTED ON BACLOFEN. PATIENT DID NOT REQUIRE ANY PRN MEDICATION . ON FALL/SEIZURE PRECAUTION. SAFETY MEASURES IN PLACE. CALL LIGHT IN REACH. WILL CONTINUE TO MONITOR.
--- NOTE | 2017-04-11 21:00 | NUR ---
MED UNABLE TO SCAN MINIPRESS UNABLE TO SCAN. CHARGE NURSE NOTIFIED.
[2017-04-11] MEDS: QUETIAPINE FUMARATE 200 MG TABLET PO SCH (21:01)
[2017-04-11] MEDS: PRAZOSIN HCL 1 MG CAPSULE PO SCH (21:02)
[2017-04-11 23:08] LABS: *GC NAA Negative (Negative); *TRIC.VAG. NAA Negative (Negative)
[2017-04-12] VITALS: BP 117/63
[2017-04-12 04:00] VITALS: BP 102/67
--- NOTE | 2017-04-12 07:16 | NUR ---
END OF SHIFT NOTE MONITORED PATIENT THROUGHOUT SHIFT. PATIENT REPORTED ANXIETY, STUFFY NOSE, SWEATING AND ABDOMINAL CRAMPING BUT STATES SHE FEELS MUCH BETTER DURING SHIFT. PATIENT C/O GENERALIZED BODY ACHES 5/10.PATIENT IS A 36 YEAR OLD FEMALE, ADMITTED FOR OPIATE/BENZO DEPENDENCE. CONTINUE ON ATIVAN AND SUBUTEX TAPER, TOLERATED WELL. NO ADVERSE REACTION. PATIENT IS FULL CODE, REGULAR DIET AND ALLERGIC TO CIPRO,KETOROLAC, LEVOFLOXACIN. PATIENT REPORTS PMH OF PTSD,BIPOLAR ,TONSILLECTOMY, STROKE, SUICIDAL IDEATION 60 DAYS (WAS IN PSYCH UNIT) AND SLEEP APNEA. NO SEIZURE HISTORY. ON ADMISSION, PATIENT HAS FOLLICULITIS UNDER HER ARMS AND ABDOMEN AREAS. PATIENT ON CPAP 5 FIO2 35 % . PATIENT DID NOT REQUIRE ANY PRN MEDICATION . PATIENT COMPLIANT WITH MEDICATIONS . PATIENT VS STABLE . RESPIRATION EVEN AND UNLABORED. NO SOB. PATIENT REMAIN FREE OF INJURY. AT 0600 , [facility] MACHINE ALARM WENT OFF. PATIENT REMOVED HER CPAP AND REFUSED TO HAVE O2 VIA NASAL CANNULA. PATIENT STATES "GET THIS OFF ME " AND GETS UPSET WHEN EXPLANATION WERE PROVIDED. O2 WAS AT 97% . ON FALL/SEIZURE PRECAUTION. SAFETY MEASURES IN PLACE. CALL LIGHT IN REACH. WILL CONTINUE TO MONITOR. SLEPT 8 HOURS. FLUID INTAKE 1,100 ML. VOIDED X 3 . NO BM. LAST COWS 1 AND CIWA 1.
--- NOTE | 2017-04-12 07:49 | NUR ---
BEGINNING OF SHIFT Patient endorsement report received from overnight cashier nurse, all pertinent information discussed. patient is a 36 year old Female admitted on 04/07/2017 with admitting Dx: bzo/opiate dependence. Patient currently ongoing taper of 5 day Ativan and 5 day Subutex taper as ordered, per nights shift patient received PRN:Tylenol and Zofran medication effective as per overnight cashier Patient with last ciwa score of: 1 and last cow score of: 1. Patient slept for 8. hours. Patient received awake, alert and oriented x4, educated regarding plan of care for the day and medication regimen. safety measures in place. call light kept with in reach, will continue to monitor.
[2017-04-12 08:03] VITALS: BP 139/79
[2017-04-12] MEDS: QUETIAPINE FUMARATE 25 MG TABLET PO SCH (08:32)
[2017-04-12] MEDS: BACLOFEN 10 MG TABLET PO SCH ×3 (08:32→21:51)
[2017-04-12] MEDS: FOLIC ACID 1 MG TABLET PO SCH (08:32)
[2017-04-12] MEDS: MULTIVITAMINS,THERAPEUTIC TABLET PO SCH (08:32)
[2017-04-12] MEDS: GABAPENTIN 300 MG CAPSULE PO SCH ×3 (08:32→21:51)
[2017-04-12] MEDS: VENLAFAXINE XR 75 MG CAP.SR.24H PO SCH (08:32)
[2017-04-12] MEDS: THIAMINE HCL 100 MG TABLET PO SCH (08:33)
[2017-04-12] MEDS: NICOTINE 14 MG/24HR PATCH TD SCH (08:36)
[2017-04-12] MEDS ORDERED: BUPRENORPHINE HCL 2 MG TAB.SUBL SL SCH (09:00)
[2017-04-12] MEDS: METHOCARBAMOL 750 MG TABLET PO PRN (11:16)
[2017-04-12] MEDS: CLONIDINE HCL 0.1 MG TABLET PO PRN (11:16)
--- NOTE | 2017-04-12 11:17 | NUR ---
PRN ROBAXIN/VISTARIL/CLONIDINE Patient reported increase in anxiety and agitation, provided with calming reassurance with no relief, encouraged patient to express self and verbalized "i feel like I'm having a panic attack" provided with non pharmacological interventions, and administered Vistaril as ordered and clonidine as ordered. Patient also reported muscle aches 6/10, administered Robaxin as ordered, will monitor effectiveness of medications. safety measures in place.
--- NOTE | 2017-04-12 12:17 | NUR ---
ROBAXIN/VISTARIL/CLONIDINE REASSESSMENT Patient reports medication effective, feels less anxious and no c/o muscle aches, current pain level 0/10. patient reported she also attend group therapy, patient encouraged to continue attending to learn new coping skills to prevent relapse, will continue to monitor.
[2017-04-12 13:08] VITALS: BP 136/74
[2017-04-12 17:04] VITALS: BP 118/75
[2017-04-12] MEDS ORDERED: HYDR-3895 PO (17:20)
[2017-04-12] MEDS ORDERED: DICY20TA28 PO (17:20)
[2017-04-12] MEDS ORDERED: Baclofen PO (17:20)
[2017-04-12] MEDS ORDERED: Gabapentin PO ×2 (17:20)
[2017-04-12] MEDS ORDERED: DIPH50CA37 PO (17:20)
[2017-04-12] MEDS ORDERED: QUET25TA PO (17:20)
[2017-04-12 17:44] LABS: *AMPHETAMINE, URINE NEGATIVE (NEGATIVE); *BARBITURATE, URINE NEGATIVE (NEGATIVE); *CANNABINOID, URINE NEGATIVE (NEGATIVE); *COCCAINE, URINE NEGATIVE (NEGATIVE); *OPIATE, URINE NEGATIVE (NEGATIVE); *PHENCYCLIDINE SCREEN,URINE NEGATIVE (NEGATIVE)
--- NOTE | 2017-04-12 18:55 | NUR ---
END OF SHIFT Patient alert and oriented x4, vital signs stable during shift. Patient with admitting Dx: BZO/Opiate dependence. Patient completed 5 day Ativan taper and 5 day Subutex taper as ordered , well tolerated, no ASE noted. 0900 assessment patient presented with: heart rate of: 92, c/o chills, mild bone and joint aches, tremors that can be felt but not seen, mild anxiety, mild agitation, and barely sweating with cow score of: 5 and ciwa score of: 4; 1300 assessment patient presented with: heart rate of 91, , c/o chills, mild bone and joint aches, tremors that can be felt but not seen, mild anxiety, mild agitation, and barely sweating with cow score of: 5 and ciwa score of: 4. 1700 assessment patient presented with: heart rate of 86, mild bone and joint aches, tremors that can be felt but not seen, and mild anxiety with cow score of: 4 and ciwa score of: 2. Detox medication effective at reducing withdrawal symptoms, Patient was administered PRN: Robaxin, Vistaril and clonidine during shift, medications were effective. Patient encouraged adequate PO fluid intake as tolerated. Encouraged to attend group therapies/sessions to learn new coping skills to prevent relapse denies any SI/HI. O2 saturation monitored closely during shift, ranging from 92%-98% room air. Patient is scheduled for discharge tomorrow, and noted self motivated towards sobriety. Urine drug screen completed. Safety measures in place. call light kept with in reach. all needs met and rendered. patient endorsed to maintenance technician 3rd shift nurse, all pertinent information discussed.
[2017-04-12] MEDS: ACETAMINOPHEN 325 MG TABLET PO PRN (19:25)
--- NOTE | 2017-04-12 19:25 | NUR ---
PRN TYLENOL RE-ASSESSMENT PATIENT C/O BOTH LEGS PAIN 06/25. PRN TYLENOL GIVEN. WILL MONITOR FOR EFFECTIVENESS
--- NOTE | 2017-04-12 19:30 | NUR ---
START OF SHIFT NOTE PATIENT IN ROOM, RESTING WITH BOTH LEGS ELEVATED FOR COMFORT. ALERT AND ORIENTED X 4. PATIENT NOTED EMOTIONAL, ANXIOUS , NO N/V. PATIENT STATES SHE'S LEAVING TOMORROW AND SHE DOES NOT WERE SHE'S GOING. RELAXATION TECHNIQUE PROVIDED AND POSITIVE ENCOURAGEMENT PROVIDED. RECEIVED REPORT FROM DAY SHIFT NURSE. PATIENT IS A 36 YEAR OLD FEMALE ADMITTED FOR BENZO/OPIATE DEPENDENCE. PATIENT IS MEDICALLY CLEARED TO BE DISCHARGED TOMORROW. PATIENT COMPLETED ATIVAN AND SUBUTEX TAPER, TOLERATED WITH NO ADVERSE REACTION. PATIENT IS FULL CODE, REGULAR DIET AND ALLERGIC TO CIPRO, KETOROLAC AND LEVOFLOXACIN. PATIENT ON FALL /SEIZURE PRECAUTION. PATIENT WAS ANXIOUS DURING THE DAY BUT STABLE. PATIENT WAS GIVEN ROBAXIN, CLONIDINE AND VISTARIL DURING THE DAY. LAST COWS 4 AND CIWA 2. PATIENT ON CPAP 5 FiO2 30% WHEN ASLEEP. SAFETY MEASURES IN PLACE. CALL LIGHT IN REACH. WILL CONTINUE TO MONITOR.
[2017-04-12 20:00] VITALS: BP 113/61
--- NOTE | 2017-04-12 20:25 | NUR ---
NIRANJAN TYLENOL RE-ASSESSMENT PATIENT NOTED WALKING BY THE HALLWAY, PATIENT STATES TYLENOL HELPFUL. SHE STATES SHE FEELS MUCH BETTER . PAIN LEVEL 2/10 AT THIS TIME.
[2017-04-12] MEDS: PRAZOSIN HCL 1 MG CAPSULE PO SCH (21:52)
[2017-04-12] MEDS: QUETIAPINE FUMARATE 200 MG TABLET PO SCH (21:52)
[2017-04-13] VITALS: BP 117/59
[2017-04-13 04:00] VITALS: BP 112/74
--- NOTE | 2017-04-13 07:13 | NUR ---
END OF SHIFT NOTE PATIENT REMAIN ALERT AND ORIENTED X 4. PATIENT NOTED EMOTIONAL, ANXIOUS, C/O PAIN ON BOTH LEGS 06/25, NO N/V DURING SHIFT. PATIENT STATES SHE'S LEAVING TOMORROW AND SHE DOES NOT KNOW WHERE SHE'S GOING. RELAXATION TECHNIQUE PROVIDED. REST AND ELEVATE FEET ENCOURAGED FOR COMFORT. PATIENT WAS GIVEN TYLENOL AT 1925 , EFFECTIVE. PATIENT IS A 36 YEAR OLD FEMALE ADMITTED FOR BENZO/OPIATE DEPENDENCE. PATIENT IS MEDICALLY CLEARED TO BE DISCHARGED TODAY. PATIENT COMPLETED ATIVAN AND SUBUTEX TAPER, TOLERATED WITH NO ADVERSE REACTION. PATIENT IS FULL CODE, REGULAR DIET AND ALLERGIC TO CIPRO, KETOROLAC AND LEVOFLOXACIN. PATIENT ON FALL /SEIZURE PRECAUTION. PATIENT ON CPAP 5 FiO2 30% WHEN ASLEEP, COMPLIANT. SAFETY MEASURES IN PLACE. CALL LIGHT IN REACH. WILL CONTINUE TO MONITOR. SLEPT 5 HOURS. FLUID INTAKE 1,292 ML. VOIDED X 2. NO BM . LAST COWS 0 AND CIWA 0.
[2017-04-13 08:00] VITALS: BP 107/68
--- NOTE | 2017-04-13 08:07 | NUR ---
START OF SHIFT: RECEIVED PT A/O X 4. SHE PRESENTS WITH APPROPRIATE AFFECT AND HER MOOD IS PLEASANT. SHE IS COMPLIANT WITH CPAP FOR SLEEP. SHE REFUSED NICOTINE PATCH AND STATES SHE IS NOT READY TO QUIT SMOKING.SHE STATES SHE IS MOTIVATED TOWARD RECOVERY AND JUST A LITTLE ANXIOUS ABOUT WHERE SHE WILL BE DISCHARGING TODAY. DISCHARGE PLANNING IN PROGRESS FOR LATER THIS AFTERNOON. HER TAPERS ARE COMPLETED. COWS 0 CIWA 0. ENCOURAGED GROUP ATTENDANCE. WILL CONTINUE TO MONITOR AND OFFER SUPPORT.
[2017-04-13] MEDS: NICOTINE 14 MG/24HR PATCH TD SCH (09:00)
[2017-04-13] MEDS: VENLAFAXINE XR 75 MG CAP.SR.24H PO SCH (09:37)
[2017-04-13] MEDS: MULTIVITAMINS,THERAPEUTIC TABLET PO SCH (09:38)
[2017-04-13] MEDS: FOLIC ACID 1 MG TABLET PO SCH (09:38)
[2017-04-13] MEDS: THIAMINE HCL 100 MG TABLET PO SCH (09:38)
[2017-04-13] MEDS: QUETIAPINE FUMARATE 25 MG TABLET PO SCH (09:38)
[2017-04-13] MEDS: GABAPENTIN 300 MG CAPSULE PO SCH (09:38)
[2017-04-13] MEDS: BACLOFEN 10 MG TABLET PO SCH (09:38)
--- NOTE | 2017-04-13 12:45 | NUR ---
DISCHARGE: PT IS A/O X 4. SHE DENIES S/I AND H/I. BELONGINGS RETURNED. EDUCATED PT ON DISCHARGE INSTRUCTIONS AND MEDICATIONS. PT EXPRESSED VERBAL UNDERSTANDING OF EDUCATION. PT WAS ESCORTED TO LOBBY BY BEHAVIORAL MEDICAL DIRECTOR WHERE SHE WAS TRANSPORTED BY [facility] AT 1240.
== END 2017-04-13 12:40 | disposition home or self-care (01) | DRG 895 ==
LOC: SRC 16:52
PROVIDERS: ADMIT Internal Medicine; ATTEND Internal Medicine
PROC: HZ2ZZZZ Detoxification Services for Substance Abuse Treatment (ICD-10-PCS; principal; 2017-04-07)
PROC: 5A09357 Assistance with Respiratory Ventilation, Less than 24 Consecutive Hours, Continuous Positive Airway Pressure (ICD-10-PCS; 2017-04-09)
PROC: HZ31ZZZ Individual Counseling for Substance Abuse Treatment, Behavioral (ICD-10-PCS; 2017-04-10)
PROC: HZ41ZZZ Group Counseling for Substance Abuse Treatment, Behavioral (ICD-10-PCS; 2017-04-12)
DX: F11.23 Opioid dependence with withdrawal (principal); Z68.41 Body mass index [BMI] 40.0-44.9, adult; F13.230 Sedative, hypnotic or anxiolytic dependence with withdrawal, uncomplicated; F10.10 Alcohol abuse, uncomplicated; F17.210 Nicotine dependence, cigarettes, uncomplicated; Y90.9 Presence of alcohol in blood, level not specified; F31.9 Bipolar disorder, unspecified; E66.9 Obesity, unspecified; F43.10 Post-traumatic stress disorder, unspecified; G47.33 Obstructive sleep apnea (adult) (pediatric); Z91.19 Patient's noncompliance with other medical treatment and regimen; Z86.73 Personal history of transient ischemic attack (TIA), and cerebral infarction without residual deficits; L73.9 Follicular disorder, unspecified; F15.21 Other stimulant dependence, in remission; R30.0 Dysuria; Z91.5 Personal history of self-harm; Z82.3 Family history of stroke; Z83.3 Family history of diabetes mellitus
CPT/HCPCS: 36415; 36600; 70030-TC; 71010; 80307; 83690; 83735; 84443; 84703; 85025; 86580; 86592; 86705; 86803; 87086; 87340; 87491; 87806; 94660; A4663; G6040-TC; Q0162